=== PATIENT | female | born 1985 | race African-American/Black ===

== ENCOUNTER 2017-02-22 11:32 | Emergency (ER) | payer SELFPAY ==
[~2017-02-22] VITALS: Ht 152.4 cm; Wt 61.2 kg
[2017-02-22 11:43] VITALS: BP 128/88; PULSE 105; RESP 18; TEMP 99.4; O2SAT 99
--- NOTE | 2017-02-22 12:04 | PD ---
HPI Chief Complaint: Skin Problem Time Seen by Provider: 12:04 Travel History International Travel<30 days: No Contact w/Intl Traveler<30days: No Traveled to known affect area: No History of Present Illness HPI 31-year-old female presents to the emergency department for evaluation of left groin tender bump for 2 days. Patient states that she thinks that she may have an ingrown hair. States that the lump is tender, red and painful. States that the area of redness is larger today. States that she has a low-grade fever. Denies any discharge or drainage from the site, red streaking, chills, body aches. Denies however she does have irregular menses. No other complaints. PFSH Past Medical History Asthma: Yes Diminished Hearing: No GERD: Yes Tetanus Vaccination: < 5 Years Influenza Vaccination: Yes ?: Not LMP: irregular, 2 months Social History Alcohol Use: No Tobacco Use: No Substance Use: No Allergies-Medications (Allergen,Severity, Reaction): Coded Allergies: Flagyl (Verified Allergy, Intermediate, HIVES, 02/22/17) Iodine (Verified Allergy, Intermediate, SHELLFISH ALLERGY, 02/22/17) Zithromax (Verified Allergy, Intermediate, HIVES, 02/22/17) Uncoded Allergies: ANTIHISTAMINES (Adverse Reaction, Intermediate, INCREASES ALLERGIC REACTIONS, 02/22/17) Reported Meds & Prescriptions Reported Meds & Active Scripts Active Clindamycin (Clindamycin HCl) 150 Mg Cap 300 Mg PO Q6H 10 Days Review of Systems Except as stated in HPI: all other systems reviewed are Neg Physical Exam Narrative GENERAL: Well-nourished and well-developed pleasant patient in no acute distress who is nontoxic appearing. SKIN: Warm and dry. 2 cm tender fluctuant area to the left groin with surrounding area of erythema and induration. Warm to touch. No discharge or drainage. No lymphangitis. HEAD: Normocephalic and atraumatic. EYES: No injection, drainage, or hyphema noted. PERRLA. EOMI. ENT: No nasal drainage noted. Oropharynx is clear. NECK: Supple and the trachea is midline. CARDIOVASCULAR: Regular rate and rhythm. RESPIRATORY: Breath sounds are equal bilaterally with no accessory muscle use, wheezing, rhonchi, or crackles. MUSCULOSKELETAL: No obvious deformities, swelling, cyanosis, or ecchymosis is present throughout the upper and lower extremities. Patient has full range of motion without any signs of neurovascular compromise. NEUROLOGICAL: Awake, alert, and oriented. Normal speech and gait. Cranial nerves are grossly intact. Data Data Last Documented VS Vital Signs Date Time Temp Pulse Resp B/P Pulse Ox O2 Delivery O2 Flow Rate FiO2 02/22/17 11:53 16 02/22/17 11:43 99.4 105 128/88 99 Orders Wound Culture And Gram Stain (02/22/17 12:09) Lidocai-Epi 1%-1:100,000 Inj (Xylocaine- (02/22/17 12:15) MDM Medical Decision Making Medical Screen Exam Complete: Yes Emergency Medical Condition: Yes Differential Diagnosis Abscess versus cellulitis versus cyst versus folliculitis Narrative Course 31-year-old female presents to the emergency department for evaluation of left groin abscess. Patient has a low-grade temperature of 99.4F. She is slightly tachycardic with a heart rate of 105 bpm. Otherwise vital signs within normal limits. She has an abscess to the left groin. I&D is performed, see procedure narrative. Patient placed on clindamycin. Discussed supportive care and advised to follow-up with her PCP. Discussed signs and symptoms of when to return to the emergency department. Patient verbalizes understanding and agreement with treatment plan. Procedures Procedure Narrative After the risks and benefits were discussed the following procedure was performed: INCISION AND DRAINAGE OF ABSCESS: The area was prepped and was sterilely draped. A subcutaneous wheal of 1 % Xylocaine with epinephrine with a total number 4 mL was used to anesthetize the area. The area was properly anesthetized. A number 11 scalpel was used to make a 1 -cm incision across the area of the abscess. Purulence was expelled. Blunt dissection used to break up any loculations. Cultures were obtained. The abscess was drained an irrigated with normal saline. Sterile dressing applied. Diagnosis Primary Impression: Abscess of left groin Referrals: Primary Care Physician Patient Instructions: Abscess (ED), Abscess Incision and Drainage (ED), General Instructions Additional Instructions: Apply warm compresses to the area for 20 minutes at a time. Taking lekk-[id number] Tylenol or ibuprofen as directed on the box as needed for pain. Take medication as prescribed with food and a full glass of water. Follow-up with your Primary Care Physician. Return to the ED for any acute worsening of symptoms. Med/Other Pt SpecificInfo: Prescription(s) given Scripts Clindamycin 150 Mg [id number] Mg PO Q6H 10 Days Ref 0 Prov:Alanis Mendoza DO 02/22/17 Disposition: 01 DISCHARGE HOME Condition: Stable Liz Galvez Feb 22, 2017 12:04
[2017-02-22] MEDS ORDERED: LIDOCAINE 1%/EPINEPHrine 1:100,000 SOLN 20 ML VIAL INFIL ONE (12:15)
[2017-02-22] MEDS ORDERED: CLIN1CAP5 PO (12:15)
== END 2017-02-22 12:52 | disposition home or self-care (01) ==
LOC: PHEFT 11:32
DX: L02.214 Cutaneous abscess of groin (principal); R50.9 Fever, unspecified; J45.909 Unspecified asthma, uncomplicated; K21.9 Gastro-esophageal reflux disease without esophagitis
CPT/HCPCS: 10060; 87070

== ENCOUNTER 2017-04-02 18:29 | Emergency (ER) | payer SELFPAY ==
[~2017-04-02] VITALS: Ht 152.4 cm; Wt 62.5 kg
[~2017-04-02 18:29] MED LIST: CLIN1CAP5 PO
[2017-04-02 18:30] VITALS: BP 134/83; PULSE 104; RESP 15; TEMP 98.7; O2SAT 99
[2017-04-02] MEDS ORDERED: TRIA0.5O TOPICAL (19:03)
[2017-04-02] MEDS ORDERED: ALBUAER3 INH (19:03)
--- NOTE | 2017-04-02 19:03 | PD ---
HPI Chief Complaint: Cold / Flu Symptoms Time Seen by Provider: 18:40 Travel History International Travel<30 days: No Contact w/Intl Traveler<30days: No Traveled to known affect area: No History of Present Illness HPI 31-year-old female presents emergency department with chief complaint of a dry cough for 2 weeks. She denies fever, chills, chest pain, shortness of breath, wheezing. Patient reports that the cough is typically worse at night is relieved with agbh-lwd-cmdzdjr cough medicines but she felt she needed evaluation tonight. The cough is nonproductive. Patient is also requesting prescription refill of her triamcinolone steroid for her eczema. [facility] Past Medical History Narrative Medical Significant for asthma, eczema Asthma: Yes Diminished Hearing: No GERD: Yes Integumentary: Yes (ECZEMA) ?: Not LMP: ON NOW Social History Alcohol Use: No Tobacco Use: No Substance Use: No Allergies-Medications (Allergen,Severity, Reaction): Coded Allergies: Flagyl (Verified Allergy, Intermediate, HIVES, 04/02/17) Iodine (Verified Allergy, Intermediate, SHELLFISH ALLERGY, 04/02/17) Zithromax (Verified Allergy, Intermediate, HIVES, 04/02/17) Uncoded Allergies: ANTIHISTAMINES (Adverse Reaction, Intermediate, INCREASES ALLERGIC REACTIONS, 02/22/17) Reported Meds & Prescriptions Reported Meds & Active Scripts Active Proair Hfa 8.5 GM Inh (Albuterol Sulfate) 90 Mcg/Act Aer 2 Puff INH Q4-6H PRN 108 mcg/actuation Triamcinolone Topical 0.5 % Oint 1 Applic TOPICAL BID Review of Systems Except as stated in HPI: all other systems reviewed are Neg Physical Exam Narrative GENERAL: Alert, well appearing, female. SKIN: Focused skin assessment warm/dry. Eczema like rash to the posterior portion of patient's neck. She reports this is been there for 2 weeks. HEAD: Atraumatic. Normocephalic. EYES: Pupils equal and round. No scleral icterus. No injection or drainage. ENT: No nasal bleeding or discharge. Mucous membranes pink and moist. NECK: Trachea midline. No JVD. CARDIOVASCULAR: Regular rate and rhythm. No murmur appreciated. RESPIRATORY: No accessory muscle use. Clear to auscultation. Breath sounds equal bilaterally. No rhonchi, wheezing, rales. GASTROINTESTINAL: Abdomen soft, non-tender, nondistended. Hepatic and splenic margins not palpable. MUSCULOSKELETAL: No obvious deformities. No clubbing. No cyanosis. No edema. NEUROLOGICAL: Awake and alert. No obvious cranial nerve deficits. Motor grossly within normal limits. Normal speech. PSYCHIATRIC: Appropriate mood and affect; insight and judgment normal. Data Data Last Documented VS Vital Signs Date Time Temp Pulse Resp B/P Pulse Ox O2 Delivery O2 Flow Rate FiO2 04/02/17 18:30 98.7 104 15 134/83 99 MDM Medical Decision Making Medical Screen Exam Complete: Yes Emergency Medical Condition: Yes Differential Diagnosis Cough, eczema, URI Narrative Course 31-year-old female presents to the emergency room for evaluation of a dry cough for 2 weeks. She denies nasal congestion, productive cough, shortness of breath , wheezing. She reports the cough is typically worse at night relieved with whfs-ecd-nqyagai cough medicine. Patient also requesting refills of her triamcinolone cream and albuterol inhaler and EpiPen. The patient is well- appearing. On exam the patient does have a dry cough. She has no adventitious breath sounds. Her lung sounds are equal bilaterally with good air movement. It's possible that the patient is having mild reactive airway. She will be given given a new prescription for albuterol. History reports she recently moved here from [place] has no primary care provider. 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 She was given information regarding local resources. Prescriptions for her medications will be refilled. Diagnosis Primary Impression: Cough Additional Impression: Eczema Qualified Code: L30.9 - Eczema, unspecified type Referrals: Primary Care Physician Scripts Epinephrine Inj Pack 0.15 Mg/0.15 Ml Pfpen0.15 Mg SQ ONCE PRN (ALLERGIC REACTION ) #1 PACK Prov:Nat Franco LEAD JANITOR 04/02/17 Albuterol 8.5 GM Inh (Proair Hfa 8.5 GM Inh)90 Mcg/Act Aer2 Puff INH Q4-6H PRN ( SHORTNESS OF BREATH) #1 INHALER Ref 0 108 mcg/actuation Prov:Nat Franco LEAD JANITOR 04/02/17 Triamcinolone Topical 0.5 % Oint1 Applic TOPICAL BID #15 GM Ref 0 Prov:Nat Franco LEAD JANITOR 04/02/17 Disposition: 01 DISCHARGE HOME Condition: Stable Nat Franco April 02, 2017 19:03
[2017-04-02] MEDS ORDERED: EPIN1INJ19 SQ (19:11)
== END 2017-04-02 19:14 | disposition home or self-care (01) ==
LOC: PHEFT 18:29
DX: R05 Cough (principal); L30.9 Dermatitis, unspecified; J45.909 Unspecified asthma, uncomplicated; K21.9 Gastro-esophageal reflux disease without esophagitis
CPT/HCPCS: 99284

== ENCOUNTER 2017-04-12 12:11 | Emergency (ER) | payer MEDICAID ==
[~2017-04-12] VITALS: Ht 154.9 cm; Wt 63.0 kg
[~2017-04-12 12:11] MED LIST changes: +ALBUAER3 INH; -CLIN1CAP5 PO; +EPIN1INJ19 SQ; +TRIA0.5O TOPICAL
[2017-04-12 12:23] VITALS: BP 121/85; PULSE 92; RESP 16; TEMP 99.1; O2SAT 99
[2017-04-12] MEDS ORDERED: DOXY100C PO (12:53)
[2017-04-12] MEDS ORDERED: PRED20 PO (12:53)
--- NOTE | 2017-04-12 12:54 | PD ---
HPI Chief Complaint: Cold / Flu Symptoms Time Seen by Provider: 12:40 Travel History International Travel<30 days: No Contact w/Intl Traveler<30days: No Traveled to known affect area: No History of Present Illness HPI 31 old female presents emergency department for evaluation of cough for 3 weeks. Patient reports she has had this persistent cough that is unrelieved by mmkj-xgf-zsouujj cough medicine or albuterol inhaler. She has a history of asthma. She denies fever, chills, wheezing, shortness of breath. She was seen and evaluated last week in the emergency department and instructed to use her albuterol inhaler. She reports she's had no improvement. She reports that the cough is primarily dry but occasionally productive. She has no chest pain. [facility] Past Medical History Medical History: Denies Significant Hx Asthma: Yes Diminished Hearing: No GERD: Yes Respiratory: Yes (ASTHMA) Integumentary: Yes (ECZEMA) Influenza Vaccination: No ?: Not Social History Alcohol Use: No Tobacco Use: No Substance Use: No Allergies-Medications (Allergen,Severity, Reaction): Coded Allergies: Flagyl (Verified Allergy, Intermediate, HIVES, 04/12/17) Iodine (Verified Allergy, Intermediate, SHELLFISH ALLERGY, 04/12/17) Zithromax (Verified Allergy, Intermediate, HIVES, 04/12/17) Uncoded Allergies: ANTIHISTAMINES (Adverse Reaction, Intermediate, INCREASES ALLERGIC REACTIONS, 02/22/17) Reported Meds & Prescriptions Reported Meds & Active Scripts Active Prednisone 20 Mg Tab 40 Mg PO DAILY Take 40 mg (2 tablets) daily for 5 days Doxycycline Hyclate 100 Mg Cap 100 Mg PO BID Epinephrine Inj Pack (Epinephrine) 0.15 Mg/0.15 Ml Pfpen 0.15 Mg SQ ONCE PRN Proair Hfa 8.5 GM Inh (Albuterol Sulfate) 90 Mcg/Act Aer 2 Puff INH Q4-6H PRN 108 mcg/actuation Review of Systems Except as stated in HPI: all other systems reviewed are Neg Physical Exam Narrative GENERAL: Well-nourished, well-developed patient. SKIN: Focused skin assessment warm/dry. HEAD: Normocephalic. EYES: No scleral icterus. No injection or drainage. NECK: Supple, trachea midline. No JVD or lymphadenopathy. CARDIOVASCULAR: Regular rate and rhythm without murmurs, gallops, or rubs. RESPIRATORY: Breath sounds equal bilaterally. No accessory muscle use. Patient coughing throughout exam. GASTROINTESTINAL: Abdomen soft, non-tender, nondistended. MUSCULOSKELETAL: No cyanosis, or edema. BACK: Nontender without obvious deformity. No CVA tenderness. Data Data Last Documented VS Vital Signs Date Time Temp Pulse Resp B/P Pulse Ox O2 Delivery O2 Flow Rate FiO2 04/12/17 12:23 99.1 92 16 121/85 99 MDM Medical Decision Making Medical Screen Exam Complete: Yes Emergency Medical Condition: Yes Differential Diagnosis Bronchitis, URI, unspecified cough, other Narrative Course 31-year-old female presents emergency department for evaluation of a cough for the last 3 weeks. Patient reports the cough is primarily dry but occasionally productive. She reports the cough is unrelieved by okpq-hfj-eahnpka cough medicines and use of her albuterol inhaler. On exam she has no adventitious breath sounds. She is coughing throughout the exam. Patient will be treated with antibiotics and steroids for bronchitis. LMP 04/05/17 Diagnosis Primary Impression: Bronchitis Referrals: Primary Care Physician Production Team Member Scripts Prednisone 20 Mg Tab40 Mg PO DAILY #10 TAB Take 40 mg (2 tablets) daily for 5 days Prov:Nat Franco 04/12/17 Doxycycline Hyclate 100 Mg [id number] Mg PO BID #14 CAP Ref 0 Prov:Nat Franco 04/12/17 Disposition: 01 DISCHARGE HOME Condition: Stable Nat Franco Apr 12, 2017 12:54
== END 2017-04-12 13:00 | disposition home or self-care (01) ==
LOC: PHEFT 12:11
DX: J40 Bronchitis, not specified as acute or chronic (principal)
CPT/HCPCS: 99284